=== PATIENT | female | born 1935 | race Caucasian/White ===

== ENCOUNTER 2021-02-01 04:30 | Day surgery (SDC) | payer OTHER ==
[2021-01-30 14:18] VITALS: BMI 24.5
[2021-02-01 09:43] VITALS: TEMP 96.9
[2021-02-01 10:55] VITALS: BP 116/55; PULSE 84
== END 2021-02-01 10:48 | disposition home or self-care (01) ==
LOC: JASU-ENDO 04:30
PROVIDERS: ATTEND Internal Medicine Gastroenterology
PROC: 0DB98ZX Excision of Duodenum, Via Natural or Artificial Opening Endoscopic, Diagnostic (ICD-10-PCS; 2021-02-01)
PROC: 0DB78ZX Excision of Stomach, Pylorus, Via Natural or Artificial Opening Endoscopic, Diagnostic (ICD-10-PCS; 2021-02-01)
PROC: 0DBL8ZX Excision of Transverse Colon, Via Natural or Artificial Opening Endoscopic, Diagnostic (ICD-10-PCS; principal; 2021-02-01 09:00)
DX: Z12.11 Encounter for screening for malignant neoplasm of colon (principal); D50.9 Iron deficiency anemia, unspecified; R97.0 Elevated carcinoembryonic antigen [CEA]; K25.9 Gastric ulcer, unspecified as acute or chronic, without hemorrhage or perforation; K44.9 Diaphragmatic hernia without obstruction or gangrene; K21.9 Gastro-esophageal reflux disease without esophagitis; K57.30 Diverticulosis of large intestine without perforation or abscess without bleeding; K63.5 Polyp of colon; K22.8 Other specified diseases of esophagus; K31.89 Other diseases of stomach and duodenum; K29.50 Unspecified chronic gastritis without bleeding; K29.80 Duodenitis without bleeding; Z98.0 Intestinal bypass and anastomosis status; Z86.010 Personal history of colon polyps
CPT/HCPCS: 88305-TC; 88342-TC